=== PATIENT | female | born 1990 | race African-American/Black ===

== ENCOUNTER 2016-07-10 09:11 | Emergency (ER) | payer OTHER ==
[~2016-07-10] VITALS: Ht 180.3 cm; Wt 61.2 kg
[2016-07-10 09:17] VITALS: BP 126/71
[2016-07-10 09:40] LABS: ADD UA MICROSCOPIC NO; KETONES,URINE Negative (NEGATIVE); LEUKOCYTE ESTERASE ,URINE Negative (NEGATIVE)
[2016-07-10 09:43] LABS: PREGNANCY TEST URINE QUAL NEGATIVE (NEGATIVE)
[2016-07-10] MEDS ORDERED: METRONIDAZOLE 500 MG TABLET ONE (09:50)
[2016-07-10] MEDS ORDERED: CEFTRIAXONE 1 G VIAL ONE (09:51)
[2016-07-10] MEDS ORDERED: AZITHROMYCIN 250 MG TABLET ONE (09:51)
[2016-07-10] MEDS ORDERED: LIDOCAINE /MPF 1% VIAL 5 ML VIAL ONE (09:51)
[2016-07-10] MEDS ORDERED: AZITHROMYCIN 250 MG TABLET PO ONE (10:00)
[2016-07-10] MEDS ORDERED: METRONIDAZOLE 500 MG TABLET PO ONE (10:00)
[2016-07-10] MEDS ORDERED: CEFTRIAXONE 1 G VIAL IM ONE (10:00)
== END 2016-07-10 10:06 | disposition home or self-care (01) ==
LOC: ER 09:13
DX: N89.8 Other specified noninflammatory disorders of vagina (principal); F17.200 Nicotine dependence, unspecified, uncomplicated
CPT/HCPCS: 81001; 84703; 96372; 99283; A4606; J0696; J3490; Z7610; 81000-TC

== ENCOUNTER 2016-11-17 16:14 | Emergency (ER) | payer OTHER ==
[~2016-11-17] VITALS: Ht 180.3 cm; Wt 63.5 kg
[2016-11-17 16:14] VITALS: BP 122/68
[2016-11-17] MEDS ORDERED: TDAP [DIPH/PERTUSSIS/TET] 0.5 ML VIAL IM ONE ×2 (16:56→17:00)
== END 2016-11-17 17:43 | disposition home or self-care (01) ==
LOC: ER 16:16
DX: S91.202A Unspecified open wound of left great toe with damage to nail, initial encounter (principal); F17.200 Nicotine dependence, unspecified, uncomplicated; Z88.5 Allergy status to narcotic agent; X58.XXXA Exposure to other specified factors, initial encounter; Y93.89 Activity, other specified; Y92.89 Other specified places as the place of occurrence of the external cause; Y99.9 Unspecified external cause status
CPT/HCPCS: 73660-TC; 90715; A4606; Z7610

== ENCOUNTER 2017-07-04 21:59 | Emergency (ER) | payer OTHER ==
[~2017-07-04] VITALS: Ht 180.3 cm; Wt 58.1 kg
[2017-07-04 22:00] VITALS: BP 125/68
== END 2017-07-04 23:19 | disposition home or self-care (01) ==
LOC: ER 22:00
DX: H10.32 Unspecified acute conjunctivitis, left eye (principal); F17.200 Nicotine dependence, unspecified, uncomplicated; Z88.5 Allergy status to narcotic agent
CPT/HCPCS: A4606; Z7610

== ENCOUNTER 2017-07-22 20:16 | Emergency (ER) | payer OTHER ==
[~2017-07-22] VITALS: Ht 180.3 cm; Wt 61.2 kg
[2017-07-22 20:33] VITALS: BP 135/77
[2017-07-22 21:44] LABS: APPEARANCE,URINE Clear (CLEAR); BILIRUBIN,URINE Negative (NEGATIVE); BLOOD, URINE Negative Ery/uL (NEGATIVE); COLOR,URINE Yellow (YELLOW); KETONES,URINE Negative (NEGATIVE); LEUKOCYTE ESTERASE ,URINE Trace (NEGATIVE); NITRITE, URINE Negative (NEGATIVE); PROTEIN,URINE Negative (NEGATIVE); UGLUCOSE Negative (NEGATIVE); UROBILINOGEN,URINE 0.2 EU/dL (0.2)
[2017-07-22 21:51] LABS: BACTERIA,URINE Rare /HPF (None Seen); RBC,URINE 0-2 /HPF (0-2); SQUAMOUS EPITHELIAL CELL,UR Moderate /HPF (None Seen); URINE AMORPHOUS URATE Few /HPF (None Seen)
== END 2017-07-22 22:19 | disposition home or self-care (01) ==
LOC: ER 20:17
DX: B37.3 Candidiasis of vulva and vagina (principal); F17.200 Nicotine dependence, unspecified, uncomplicated; F12.10 Cannabis abuse, uncomplicated; Z88.5 Allergy status to narcotic agent
CPT/HCPCS: 81001; 84703; 99284; 99406; A4606; Z7610; 81000-TC

== ENCOUNTER 2017-10-20 10:00 | Emergency (ER) | payer OTHER ==
[~2017-10-20] VITALS: Ht 180.3 cm; Wt 63.5 kg
--- NOTE | 2017-10-20 10:07 | NUR ---
A/OX4, AMBULATORY IN A STEADY GAIT TO ED VAGINAL BLEEDING X 2-3 DAYS, 4-5WKS .PT STS SHE PLANNED TO GET AN 2 WKS AGO BUT SHE WAS TOLD THAT THEY COULD NOT FIND IT AND SHE WAS TOLD THAT IT COULD BE A POSSIBLE ECTOPIC . NO PAIN AT THIS TIME. LMP-09/02/17, A1. NAD VSS RR EVEN AND UNLABORED. PENDING ER MD EVALUATION
--- NOTE | 2017-10-20 10:20 | NUR ---
URINE OBTAINED AND SENT TO LAB.
[2017-10-20 10:28] LABS: BASOPHILS % (AUTO) 0.4 % (0.0-2.0); EOSINOPHILS % (AUTO) 2.5 % (0.0-6.0); HEMATOCRIT 39 % (33-45); HEMOGLOBIN 12.8 g/dL (11.5-14.8); LYMPHOCYTES # (AUTO) 1.8 /CMM (0.8-4.8); LYMPHOCYTES % (AUTO) 33.3 % (20.0-44.0); MEAN CORPUSCULAR HGB CONC 33 g/dl (31.0-36.0); MEAN CORPUSCULAR VOLUME 82 fL (82-100); MONOCYTES # (AUTO) 0.3 /CMM (0.1-1.30); MONOCYTES % (AUTO) 6.1 % (2.0-12.0); NEUTROPHILS # (AUTO) 3.1 /CMM (1.8-8.9); NEUTROPHILS % (AUTO) 57.7 % (43.0-81.0); PLATELET COUNT (AUTO) 209 /CMM (150-450); RDW COEFFICIENT OF VARIATION 13.7 (11.5-15.0); WHITE BLOOD COUNT (AUTO) 5.3 K/uL (4.3-11.0)
[2017-10-20 10:29] LABS: APPEARANCE,URINE Slightly Cloudy (CLEAR); BILIRUBIN,URINE Negative (NEGATIVE); BLOOD, URINE Moderate Ery/uL (NEGATIVE); COLOR,URINE Yellow (YELLOW); KETONES,URINE Negative (NEGATIVE); LEUKOCYTE ESTERASE ,URINE Trace (NEGATIVE); NITRITE, URINE Negative (NEGATIVE); PH,URINE 6.5 (5.0-8.0); PROTEIN,URINE Negative (NEGATIVE); UGLUCOSE Negative (NEGATIVE); UROBILINOGEN,URINE 0.2 EU/dL (0.2)
[2017-10-20 10:37] LABS: BACTERIA,URINE Few /HPF (None Seen); SQUAMOUS EPITHELIAL CELL,UR Moderate /HPF (None Seen)
--- NOTE | 2017-10-20 10:49 | NUR ---
US TECH AT BEDSIDE.
[2017-10-20 12:32] VITALS: BP 129/84
--- NOTE | 2017-10-20 12:34 | NUR ---
Patient discharged to home in stable condition. Written and verbal after care instructions given. Patient verbalizes understanding of instruction.
== END 2017-10-20 12:33 | disposition home or self-care (01) ==
LOC: ER 10:01
DX: O20.9 Hemorrhage in early pregnancy, unspecified (principal); F10.10 Alcohol abuse, uncomplicated; F17.200 Nicotine dependence, unspecified, uncomplicated; Z3A.01 Less than 8 weeks gestation of pregnancy; Z88.8 Allergy status to other drugs, medicaments and biological substances
CPT/HCPCS: 36415; 76856-TC; 81000-TC; 84702-TC; 85025-TC; 86850-TC; A4606; Z7610

== ENCOUNTER 2017-10-24 23:35 | Emergency (ER) | payer OTHER ==
[~2017-10-24] VITALS: Ht 180.3 cm; Wt 63.5 kg
--- NOTE | 2017-10-24 23:53 | NUR ---
PT PRESENTED TO THE ER WITH A C/O ABD PAIN AND VAGINAL BLEEDING. PT IS 5 WKS . PT STATED THAT SHE USED 7-10 PADS IN THE LAST 24 HOURS. 3, PARA 1. PT AMBULATED IN WITH A STEADY GAIT.
--- NOTE | 2017-10-25 00:07 | NUR ---
PT AMBULATED TO THE BATHROOM WITH A STEADY GAIT. PT TRYING TO GIVE A URINE SAMPLE.
[2017-10-25 00:50] LABS: BASOPHILS % (AUTO) 0.5 % (0.0-2.0); EOSINOPHILS % (AUTO) 3.1 % (0.0-6.0); HEMATOCRIT 34 % (33-45); HEMOGLOBIN 11.3 g/dL (11.5-14.8); LYMPHOCYTES # (AUTO) 2.5 /CMM (0.8-4.8); LYMPHOCYTES % (AUTO) 37.1 % (20.0-44.0); MEAN CORPUSCULAR HGB CONC 33 g/dl (31.0-36.0); MEAN CORPUSCULAR VOLUME 84 fL (82-100); MONOCYTES # (AUTO) 0.4 /CMM (0.1-1.30); MONOCYTES % (AUTO) 6.5 % (2.0-12.0); NEUTROPHILS # (AUTO) 3.6 /CMM (1.8-8.9); NEUTROPHILS % (AUTO) 52.8 % (43.0-81.0); PLATELET COUNT (AUTO) 181 /CMM (150-450); RDW COEFFICIENT OF VARIATION 14.6 (11.5-15.0); RED BLOOD CELL COUNT(AUTO) 4.03 MIL/uL (4.0-5.2); WHITE BLOOD COUNT (AUTO) 6.8 K/uL (4.3-11.0)
--- NOTE | 2017-10-25 00:50 | NUR ---
ULTRASOUND AT BEDSIDE.
[2017-10-25 00:57] LABS: APPEARANCE,URINE CLOUDY (CLEAR); BILIRUBIN,URINE NEGATIVE (NEGATIVE); BLOOD, URINE 3+ Ery/uL (NEGATIVE); COLOR,URINE RED (YELLOW); KETONES,URINE TRACE (NEGATIVE); LEUKOCYTE ESTERASE ,URINE 1+ (NEGATIVE); NITRITE, URINE POSITIVE (NEGATIVE); PH,URINE 6.5 (5.0-8.0); PROTEIN,URINE 3+ mg/dl (NEGATIVE); UGLUCOSE NEGATIVE (NEGATIVE)
[2017-10-25 00:59] LABS: CALCIUM, SERUM 9.2 mg/dL (8.5-10.1); CREATININE 0.8 mg/dL (0.6-1.3); POTASSIUM 4.1 mmol/L (3.5-5.1)
[2017-10-25 01:13] LABS: BACTERIA,URINE None seen /HPF (None Seen); RBC,URINE TOO NUMEROUS TO COUN /HPF (0-2); SQUAMOUS EPITHELIAL CELL,UR Moderate /HPF (None Seen)
--- NOTE | 2017-10-25 01:56 | NUR ---
Patient discharged to home in stable condition. Written and verbal after care instructions given. Patient verbalizes understanding of instruction. Patient ambulatory with a steady gait.
[2017-10-25 01:57] VITALS: BP 117/68
== END 2017-10-25 01:58 | disposition home or self-care (01) ==
LOC: ER 23:37
DX: O03.88 Urinary tract infection following complete or unspecified spontaneous abortion (principal); F17.200 Nicotine dependence, unspecified, uncomplicated; Z60.2 Problems related to living alone; Z88.8 Allergy status to other drugs, medicaments and biological substances
CPT/HCPCS: 36415; 76856-TC; 80048-TC; 81000-TC; 84702-TC; 85025-TC; 85730-TC; 87086-TC; A4606; Z7610